=== PATIENT | male | born 1965 | race Two or more races ===

== ENCOUNTER → 2022-01-06 | Outpatient (CLI) | payer OTHER ==
[2022-01-06 07:37] LABS: Eosinophils # (auto) 0.1 10 ^3/uL (0-0.8); Hematocrit 42.7 % (41.0-53.0); Neutrophils # (auto) 5.4 10 ^3/uL (1.6-8.6); Red Cell Distribution Width 14.7 % (11.8-14.3)
[2022-01-06 07:39] LABS: Basophils # (auto) 0 10 ^3/uL (0-0.2); Basophils % (auto) 0.6 % (0.0-2.0); Eosinophils % (auto) 1.5 % (0.0-7.0); Hemoglobin 13.5 g/dL (13.5-17.5); Lymphocytes # (auto) 2.1 10 ^3/uL (0.4-5.4); Mean Corpuscular Hemoglobin 26.4 pg (28.0-32.0); Mean Corpuscular Hgb Conc. 31.5 g/dL (32.0-36.0); Mean Corpuscular Volume 83.7 fL (80.0-100.0); Monocytes # (auto) 0.7 10 ^3/uL (0-1.3); Monocytes % (auto) 8.2 % (0.0-12.0); Neutrophils % (auto) 64.7 % (37.0-80.0); White Blood Cell 8.3 10^3/uL (4.4-10.8)
[2022-01-06 07:47] LABS: Urine Bacteria NONE SEEN /hpf (None Seen); Urine Blood Negative /uL (Negative); Urine Specific Gravity 1.042 (1.001-1.035); Urine WBC 3 /hpf (0 - 3)
[2022-01-06 07:59] LABS: Albumin 3.2 g/dL (3.4-5.0); Potassium 4.1 mmol/L (3.5-5.1)
[2022-01-06 08:09] LABS: BUN/Creatinine Ratio 12.7; Bilirubin, Total 0.6 mg/dL (0.2-1.0); Calcium 9.6 mg/dL (8.5-10.1); Total Protein 8.1 g/dL (6.4-8.2)
[2022-01-06 08:58] LABS: Free T4 (Free Thyroxine) 1.13 ng/dL (0.89-1.76)
[2022-01-06 09:07] LABS: Prostate Specific Antigen 8.78 ng/mL (0.0-4.0)
== END | disposition home or self-care (01) ==
LOC: LAB 07:00
PROVIDERS: ATTEND Internal Medicine
DX: I10 Essential (primary) hypertension (principal); E11.22 Type 2 diabetes mellitus with diabetic chronic kidney disease
CPT/HCPCS: 36415; 80053; 80061; 81001; 82306; 82607; 83036; 84153; 84154; 84439; 84443; 85025

== ENCOUNTER → 2022-09-13 | Outpatient (CLI) | payer OTHER | END | disposition home or self-care (01) | LOC: LAB 08:35 | PROVIDERS: ATTEND Internal Medicine | DX: Z02.0 Encounter for examination for admission to educational institution (principal) | CPT/HCPCS: 36415; 86706; 86735; 86762; 86765; 86787 ==

== ENCOUNTER 2023-01-28 15:43 | Emergency (ER) | payer BC ==
[~2023-01-28] VITALS: Ht 180.3 cm; Wt 111.7 kg
[2023-01-28 16:44] LABS: Urine Bacteria NONE SEEN /hpf (None Seen); Urine Blood Negative /uL (Negative); Urine Clarity HAZY (Clear); Urine Color Yellow (Yellow); Urine Mucus FEW (None Seen); Urine Protein, UAD 1+ (Negative); Urine Specific Gravity 1.044 (1.001-1.035); Urine Urobilinogen Normal (Negative); Urine WBC 26 /hpf (0 - 3); Urine pH 5.5 (5.0-8.0)
[2023-01-28] MEDS ORDERED: SODIUM CHLORIDE 0.9% 1,000 ML IV ONE ×2 (17:00→19:15)
[2023-01-28] MEDS ORDERED: InsuLIN REG 1unit/0.01ml Soln (100units/ml) IV ONE (17:00)
[2023-01-28 17:20] LABS: Basophils # (auto) 0.1 10 ^3/uL (0-0.2); Basophils % (auto) 0.6 % (0.0-2.0); Eosinophils # (auto) 0.2 10 ^3/uL (0-0.8); Eosinophils % (auto) 2.5 % (0.0-7.0); Hemoglobin 13.1 g/dL (13.5-17.5); Lymphocytes # (auto) 3.1 10 ^3/uL (0.4-5.4); Mean Corpuscular Hemoglobin 27.4 pg (28.0-32.0); Mean Corpuscular Hgb Conc. 32.8 g/dL (32.0-36.0); Mean Corpuscular Volume 83.5 fL (80.0-100.0); Monocytes # (auto) 0.7 10 ^3/uL (0-1.3); Monocytes % (auto) 7.6 % (0.0-12.0); Neutrophils # (auto) 5.5 10 ^3/uL (1.6-8.6); Neutrophils % (auto) 57.3 % (37.0-80.0); Red Blood Cells 4.79 10^6/uL (4.5-5.90); Red Cell Distribution Width 13.6 % (11.8-14.3); White Blood Cell 9.5 10^3/uL (4.4-10.8)
[2023-01-28] MEDS ORDERED: InsuLIN REG 1unit/0.01ml Soln (100units/ml) SC ONE (19:15)
[2023-01-28 20:29] LABS: Alanine Aminotransferase 16 U/L (7-40); Albumin 3.9 g/dL (3.2-4.8); Alkaline Phosphatase 80 U/L (46-116); Anion Gap 6.8 (5-15); Aspartate Aminotransferase 10 U/L (13-40); BUN/Creatinine Ratio 10.9 (10.0-20.0); Bilirubin, Total 0.3 mg/dL (0.2-1.0); Blood Urea Nitrogen 12 mg/dL (9-23); Calcium 8.6 mg/dL (8.5-10.1); Carbon Dioxide 26.2 mmol/L (20-30); Chloride 102 mmol/L (98-107); Glucose 234 mg/dL (74-106); Potassium 3.3 mmol/L (3.5-5.1); Sodium 135 mmol/L (136-145); Total Protein 7.4 g/dL (5.7-8.2)
[2023-01-28] MEDS ORDERED: cefTRIAXone SOD 1,000 MG VL IM ONE (20:45)
[2023-01-28] MEDS ORDERED: POTASSIUM CHL 20 Meq TABLET PO ONE (20:45)
[2023-01-28] MEDS ORDERED: CEPH500C PO (20:47)
[2023-01-28 20:53] VITALS: BP 135/84; PULSE 72; RESP 18; TEMP 97.8; O2SAT 98
== END 2023-01-28 21:19 | disposition home or self-care (01) ==
LOC: ER 15:43
DX: N39.0 Urinary tract infection, site not specified (principal); E11.65 Type 2 diabetes mellitus with hyperglycemia; R53.1 Weakness
CPT/HCPCS: 36415; 80053; 81001; 82010; 82962; 84484; 85025; 93005; 96361; 96372; 96374; 99284; J0696; J1815; J7030

== ENCOUNTER → 2023-01-28 | Outpatient (CLI) | payer BC ==
[~2023-01-28] MED LIST: CEPH500C PO
[2023-01-28 07:40] LABS: Basophils # (auto) 0.1 10 ^3/uL (0-0.2); Basophils % (auto) 0.8 % (0.0-2.0); Eosinophils # (auto) 0.3 10 ^3/uL (0-0.8); Hematocrit 41.7 % (41.0-53.0); Hemoglobin 13.9 g/dL (13.5-17.5); Lymphocytes # (auto) 2.1 10 ^3/uL (0.4-5.4); Lymphocytes % (auto) 25.9 % (10.0-50.0); Mean Corpuscular Hemoglobin 27.9 pg (28.0-32.0); Mean Corpuscular Hgb Conc. 33.2 g/dL (32.0-36.0); Monocytes # (auto) 0.6 10 ^3/uL (0-1.3); Monocytes % (auto) 7.1 % (0.0-12.0); Neutrophils # (auto) 5.2 10 ^3/uL (1.6-8.6); Neutrophils % (auto) 63.2 % (37.0-80.0); Red Blood Cells 4.97 10^6/uL (4.5-5.90); Red Cell Distribution Width 13.5 % (11.8-14.3); White Blood Cell 8.3 10^3/uL (4.4-10.8)
[2023-01-28 08:16] LABS: Alanine Aminotransferase 16 U/L (7-40); Albumin 4.1 g/dL (3.2-4.8); Alkaline Phosphatase 117 U/L (46-116); Anion Gap 6.5 (5-15); Aspartate Aminotransferase < 8 U/L (13-40); BUN/Creatinine Ratio 10.5 (10.0-20.0); Bilirubin, Total 0.2 mg/dL (0.2-1.0); Blood Urea Nitrogen 13 mg/dL (9-23); Calcium 9.2 mg/dL (8.5-10.1); Carbon Dioxide 27.5 mmol/L (20-30); Chloride 101 mmol/L (98-107); Cholesterol 147 mg/dL (< 200); HDL Cholesterol 31 mg/dL (40-59); LDL Cholesterol 78 mg/dL (< 100); Sodium 135 mmol/L (136-145); Total Protein 7.9 g/dL (5.7-8.2); Triglycerides 277 mg/dL (< 150); Urine Bacteria FEW /hpf (None Seen); Urine Blood Negative /uL (Negative); Urine Budding Yeast FEW /hpf (None Seen); Urine Clarity Clear (Clear); Urine Protein, UAD Negative (Negative); Urine Specific Gravity 1.032 (1.001-1.035); Urine Urobilinogen Normal (Negative); Urine WBC 1 /hpf (0 - 3); Urine pH 6.5 (5.0-8.0)
[2023-01-28 08:22] LABS: Urine Color Straw (Yellow)
[2023-01-28 08:36] LABS: Glucose 432 mg/dL (74-106)
[2023-01-28 08:52] LABS: Prostate Specific Antigen 6.78 ng/mL (0.0-4.0)
== END | disposition home or self-care (01) ==
LOC: LAB 06:04
PROVIDERS: ATTEND Internal Medicine
DX: E11.22 Type 2 diabetes mellitus with diabetic chronic kidney disease (principal); I10 Essential (primary) hypertension
CPT/HCPCS: 36415; 80053; 80061; 81001; 82043; 82274; 82306; 82607; 83036; 84153; 84154; 84443; 85025

== ENCOUNTER → 2023-03-10 | Outpatient (CLI) | payer BC ==
[2023-03-10 13:48] LABS: Alanine Aminotransferase 19 U/L (7-40); Alkaline Phosphatase 67 U/L (46-116); Anion Gap 7 (5-15); Blood Urea Nitrogen 14 mg/dL (9-23); Calcium 9.8 mg/dL (8.5-10.1); Carbon Dioxide 30 mmol/L (20-30); Chloride 103 mmol/L (98-107); Glucose 56 mg/dL (74-106); Potassium 3.7 mmol/L (3.5-5.1); Sodium 140 mmol/L (136-145)
[2023-03-10 13:49] LABS: Albumin 4.3 g/dL (3.2-4.8); Aspartate Aminotransferase 11 U/L (13-40); Bilirubin, Total 0.4 mg/dL (0.2-1.0); Total Protein 7.9 g/dL (5.7-8.2)
== END | disposition home or self-care (01) ==
LOC: LAB 13:18
PROVIDERS: ATTEND Internal Medicine
DX: E11.22 Type 2 diabetes mellitus with diabetic chronic kidney disease (principal); N18.9 Chronic kidney disease, unspecified
CPT/HCPCS: 36415; 80053

== ENCOUNTER → 2023-06-09 | Outpatient (CLI) | payer BC ==
[2023-06-09 06:57] LABS: Urine Bacteria NONE SEEN /hpf (None Seen); Urine Blood Negative /uL (Negative); Urine Clarity Clear (Clear); Urine Color Yellow (Yellow); Urine Protein, UAD TRACE (Negative); Urine Specific Gravity 1.022 (1.001-1.035); Urine Urobilinogen Normal (Negative); Urine WBC 3 /hpf (0 - 3)
[2023-06-09 07:29] LABS: Alanine Aminotransferase 20 U/L (7-40); Albumin 4.3 g/dL (3.2-4.8); Alkaline Phosphatase 62 U/L (46-116); Anion Gap 8 (5-15); Aspartate Aminotransferase 15 U/L (13-40); BUN/Creatinine Ratio 11.6 (10.0-20.0); Bilirubin, Total 0.4 mg/dL (0.2-1.0); Blood Urea Nitrogen 14 mg/dL (9-23); Carbon Dioxide 30 mmol/L (20-30); Chloride 101 mmol/L (98-107); Glucose 96 mg/dL (74-106); Potassium 3.7 mmol/L (3.5-5.1); Sodium 139 mmol/L (136-145); Total Protein 7.8 g/dL (5.7-8.2)
== END | disposition home or self-care (01) ==
LOC: LAB 06:23
PROVIDERS: ATTEND Internal Medicine
DX: E11.65 Type 2 diabetes mellitus with hyperglycemia (principal)
CPT/HCPCS: 36415; 80053; 81001; 82043; 82607; 83036

== ENCOUNTER → 2023-07-22 | Outpatient (CLI) | payer BC | END | disposition home or self-care (01) | LOC: LAB 12:00 | PROVIDERS: ATTEND Urology | DX: N40.0 Benign prostatic hyperplasia without lower urinary tract symptoms (principal); R31.9 Hematuria, unspecified ==

== ENCOUNTER → 2024-01-16 | Outpatient (CLI) | payer BC ==
[2024-01-16 06:52] LABS: Basophils # (auto) 0 10 ^3/uL (0-0.2); Basophils % (auto) 0.5 % (0.0-2.0); Eosinophils # (auto) 0.2 10 ^3/uL (0-0.8); Eosinophils % (auto) 2.4 % (0.0-7.0); Hematocrit 43.1 % (41.0-53.0); Hemoglobin 14.1 g/dL (13.5-17.5); Lymphocytes % (auto) 21.9 % (10.0-50.0); Mean Corpuscular Hemoglobin 27.5 pg (28.0-32.0); Mean Corpuscular Hgb Conc. 32.6 g/dL (32.0-36.0); Mean Corpuscular Volume 84.3 fL (80.0-100.0); Monocytes # (auto) 0.7 10 ^3/uL (0-1.3); Monocytes % (auto) 7.7 % (0.0-12.0); Neutrophils # (auto) 6.1 10 ^3/uL (1.6-8.6); Neutrophils % (auto) 67.5 % (37.0-80.0); Platelet Count (auto) 346 10^3/uL (140-450); Red Blood Cells 5.11 10^6/uL (4.5-5.90); Red Cell Distribution Width 15.2 % (11.8-14.3); White Blood Cell 9.1 10^3/uL (4.4-10.8)
[2024-01-16 07:53] LABS: Alanine Aminotransferase 15 U/L (7-40); Alkaline Phosphatase 71 U/L (46-116); Anion Gap 4 (5-15); BUN/Creatinine Ratio 11.2 (10.0-20.0); Blood Urea Nitrogen 15 mg/dL (9-23); Calcium 9.8 mg/dL (8.7-10.4); Carbon Dioxide 32 mmol/L (20-30); Chloride 105 mmol/L (98-107); Glucose 149 mg/dL (74-106); LDL Cholesterol 66 mg/dL (< 100); Potassium 3.5 mmol/L (3.5-5.1); Sodium 141 mmol/L (136-145); Triglycerides 148 mg/dL (< 150)
[2024-01-16 07:54] LABS: Albumin 4.1 g/dL (3.2-4.8); Aspartate Aminotransferase 13 U/L (13-40); Cholesterol 126 mg/dL (< 200); HDL Cholesterol 35 mg/dL (40-59)
[2024-01-16 07:55] LABS: Bilirubin, Total 0.3 mg/dL (0.2-1.0); Total Protein 7.5 g/dL (5.7-8.2)
== END | disposition home or self-care (01) ==
LOC: LAB 06:09
PROVIDERS: ATTEND Internal Medicine
DX: I10 Essential (primary) hypertension (principal); E11.9 Type 2 diabetes mellitus without complications; E78.5 Hyperlipidemia, unspecified
CPT/HCPCS: 36415; 80053; 80061; 83036; 85025

== ENCOUNTER → 2024-01-23 | Outpatient (CLI) | payer BC ==
[2024-01-23 07:15] LABS: Alanine Aminotransferase 14 U/L (7-40); Albumin 4.3 g/dL (3.2-4.8); Alkaline Phosphatase 66 U/L (46-116); Anion Gap 8 (5-15); Aspartate Aminotransferase 12 U/L (13-40); BUN/Creatinine Ratio 11.7 (10.0-20.0); Bilirubin, Total 0.4 mg/dL (0.2-1.0); Blood Urea Nitrogen 16 mg/dL (9-23); Calcium 9.3 mg/dL (8.7-10.4); Carbon Dioxide 27 mmol/L (20-30); Chloride 104 mmol/L (98-107); Glucose 192 mg/dL (74-106); Potassium 3.4 mmol/L (3.5-5.1); Sodium 139 mmol/L (136-145); Total Protein 7.7 g/dL (5.7-8.2)
== END | disposition home or self-care (01) ==
LOC: LAB 06:04
PROVIDERS: ATTEND Internal Medicine
DX: Z01.812 Encounter for preprocedural laboratory examination (principal)
CPT/HCPCS: 36415; 80053